=== PATIENT | male | born 1985 ===

== ENCOUNTER 2023-12-26 17:22 | Emergency (ER) | payer OTHER ==
[~2023-12-26] VITALS: Ht 177.8 cm; Wt 136.3 kg
[2023-12-26] MEDS ORDERED: LACTATED RINGER'S 1,000 ML IV ONE (17:30)
[2023-12-26] MEDS ORDERED: ondansetron HCL 4 MG/2 ML VIAL IV ONE (17:30)
[2023-12-26] MEDS ORDERED: DIPHTH,PERTUSS(ACELL),TET VAC 0.5 ML SYRINGE IM ONE (17:30)
[2023-12-26] MEDS ORDERED: HYDROmorphone HCL 1 MG/ML SYR IV ONE (17:30)
[2023-12-26 17:42] LABS: BASOPHILS 0.7 % (0-2); EOSINOPHILS 2.3 % (0-6); HEMATOCRIT 47.7 % (35.0-50.0); HEMOGLOBIN 16.3 g/dL (12.0-18.0); LYMPHOCYTES 31.4 % (24-44); MCH 31.7 (27-36); MCHC 34.1 g/dl (30-36); MCV 92.8 fl (81-99); MONOCYTES 3.7 % (0-12); NEUTROPHILS 61.9 % (39-80); PLATELET COUNT 300 K/uL (140-440); RBC 5.14 M/ul (4.3-5.7); RDW 14.8 (10.5-15.0)
[2023-12-26 17:52] LABS: ALBUMIN 3.6 g/dL (3.4-5.0); ALBUMIN/GLOBULIN RATIO 0.86 (1.1-2.4); ALCOHOL, MEDICAL <3 ng/dL (<3); ALKALINE PHOSPHATASE 121 U/L (46-116); ALT (SGPT) 486 U/L (14-59); AST (SGOT) 462 U/L (15-37); BILIRUBIN, TOTAL 0.4 ng/dL (0.2-1.0); BUN/CREATININE RATIO 15.15 (6.0-28.6); CALCIUM 8.9 mg/dL (8.5-10.1); CARBON DIOXIDE 25 mmol/L (21-32); CHLORIDE 101 mmol/L (98-107); CREATINE KINASE 927 U/L (39-308); CREATININE, SERUM 1.32 mg/dL (0.70-1.30); GLOMERULAR FILTRATION RATE,EST 71 mL/min (>60); PROTEIN, TOTAL 7.8 g/dL (6.4-8.2); UREA NITROGEN 20 mg/dL (7-18)
[2023-12-26 18:10] LABS: ABO O; ANTIBODY SCREEN NEGATIVE; RH POSITIVE
[2023-12-26] MEDS ORDERED: diazePAM 10 MG/2 ML SYR IV ONE (18:15)
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
[2023-12-26] MEDS ORDERED: LACTATED RINGER'S 1,000 ML IV SCH (19:45)
[2023-12-26 20:46] LABS: INFLUENZA B NAA NEGATIVE (NEGATIVE); RESPIRATORY SYNCYTIAL VIR NAA NEGATIVE (NEGATIVE)
[2023-12-26] MEDS ORDERED: HYDROmorphone HCL 1 MG/ML SYR IV PRN (22:15)
[2023-12-26 22:45] VITALS: BP 158/64
== END 2023-12-26 23:02 | disposition short-term general hospital (02) ==
LOC: ED 17:22
PROVIDERS: Emergency Medicine
DX: S12.600A Unspecified displaced fracture of seventh cervical vertebra, initial encounter for closed fracture (principal); S22.41XA Multiple fractures of ribs, right side, initial encounter for closed fracture; V29.99XA Rider (driver) (passenger) of other motorcycle injured in unspecified traffic accident, initial encounter
CPT/HCPCS: 36415; 70450; 71260; 72125; 73030; 73090; 73590; 73630; 74177; 80053; 80307; 82553; 83605; 85025; 86850; 86900; 86901; 87502; 99285-25; G0480; J1170; J2405; J3360; J7121; U0002